=== PATIENT | male | born 1945 | race Caucasian/White ===

== ENCOUNTER 2020-06-04 13:01 | Outpatient (CLI) | payer MEDICARE, OTHER ==
--- NOTE | 2020-06-04 19:19 | CT Report ---
PROCEDURE: CHEST WO INDICATIONS: LUNG CA TECHNIQUE: Noncontrast 5 mm thick sections acquired from the pulmonary apices to the posterior costophrenic angl es. 7 mm thick coronal and sagittal MIP reformats were then acquired. For radiation dose reduction, the following was used: automated exposure control, adjustment of mA and/or kV according to patient size. COMPARISON: none available for review. FINDINGS: Image quality: Excellent. Lungs and pleura: Minimal bibasilar atelectasis. Postoperative changes from prior right middle lobe resection with associated scarring. A 4mm calcified granuloma in the posterior right lower lobe. No s eptal thickening or nodularity. No acute air space opacities. No pleural effusions or pneumothorax. Central and peripheral airways are patent and normal in caliber. Mediastinum: Heart size is normal. Moderate atherosclerotic coronary arterial calcifications. No pe ricardial effusion. No mediastinal adenopathy by size criteria. Thoracic aorta and central pulmonar y arteries are normal in size. Esophagus is normal in caliber. No hiatal hernia. Bones and chest wall: No suspicious bony lesions. No acute vertebral body compression fractures. N o axillary or supraclavicular adenopathy by size criteria. The thyroid is normal in size. Abdomen: There is a 3mm nonobstructing right renal calculus. Remainder of the visualized upper abdom inal solid organs and bowel loops appear normal in the absence of contrast. IMPRESSION: 1. CT chest without acute cardiopulmonary abnormalities. 2. Post operative changes of prior right middle lobectomy. No suspicious pulmonary nodules/masses or adenopathy. 3. Moderate atherosclerotic calcifications of the coronary arteries. 4. A 3 mm nonobstructing right nephrolith. Reviewed by: Moshe Nicole MD on 06/04/2020 7:17 PM PST Approved by: Moshe Nicole MD on 06/04/2020 7:17 PM PST Station ID: [id number]
== END 2020-06-04 13:02 | disposition home or self-care (01) ==
LOC: DI 13:01
PROVIDERS: ATTEND Physician Assistant
DX: C34.2 Malignant neoplasm of middle lobe, bronchus or lung (principal)
CPT/HCPCS: 71250